=== PATIENT | female | born 1995 | race Caucasian/White ===

== ENCOUNTER → 2017-10-14 | Outpatient (REF) | payer BC | LOC: M LAB REF 11:54 | DX: R50.9 Fever, unspecified (principal); J02.9 Acute pharyngitis, unspecified ==

== ENCOUNTER 2018-04-14 23:21 | Emergency (ER) | payer BC | END 2018-04-14 23:23 | disposition left against medical advice (07) | LOC: M ED 23:21 | DX: R07.0 Pain in throat (principal); Z53.21 Procedure and treatment not carried out due to patient leaving prior to being seen by health care provider ==

== ENCOUNTER → 2018-04-19 | Outpatient (REF) | payer BC | LOC: M LAB REF 21:01 | DX: J20.9 Acute bronchitis, unspecified (principal) | CPT/HCPCS: 87430 ==

== ENCOUNTER → 2022-07-28 | Outpatient (REF) | payer BC | LOC: M LAB REF 17:41 | PROVIDERS: ATTEND Physician Assistant Medical | DX: J02.9 Acute pharyngitis, unspecified (principal) ==

== ENCOUNTER → 2023-05-19 | Outpatient (REF) | payer BC | LOC: M LAB REF 14:15 | PROVIDERS: ATTEND Physician Assistant | DX: J02.9 Acute pharyngitis, unspecified (principal) ==

== ENCOUNTER → 2023-06-10 | Outpatient (CLI) | payer BC ==
[2023-06-10 17:53] LABS: BASO % 0.5 % (0.0-1.0); EOS # 0.2 10^3/uL (0.0-0.5); EOS % 2.2 % (0.0-3.0); HEMATOCRIT 40.3 % (36.0-47.0); LYMPH # 2.9 10^3/uL (1.5-5.0); LYMPH % 39.2 % (24.0-44.0); MEAN CORPUSCULAR HEMOGLOBIN 28.7 pg (27.0-33.0); MEAN CORPUSCULAR HGB CONC 32.3 g/dl (32.0-36.5); MONO # 0.6 10^3/uL (0.0-0.8); MONO % 8.7 % (2.0-8.0); NEUTROPHILS # 3.6 10^3/uL (1.5-8.5); PLATELET COUNT, AUTOMATED 285 10^3/uL (150-450); RED BLOOD COUNT 4.53 10^6/uL (4.00-5.40); WHITE BLOOD COUNT 7.3 10^3/uL (4.0-10.0)
[2023-06-10 18:17] LABS: ALBUMIN 3.6 G/DL (3.2-5.2); ALKALINE PHOSPHATASE 70 U/L (46-116); ALT/SGPT 16 U/L (7.0-40); AST/SGOT 11 U/L (<34); BILIRUBIN,TOTAL 0.3 MG/DL (0.3-1.2); BLOOD UREA NITROGEN 12 MG/DL (9-23); CARBON DIOXIDE LEVEL 27 MMOL/L (20-31); CHLORIDE LEVEL 103 MMOL/L (98-107); CHOLESTEROL LEVEL 223 MG/DL (<200); CHOLESTEROL RISK RATIO 2.89 (<5); CREATININE FOR GFR 0.68 MG/DL (0.55-1.30); FREE T4 1.01 NG/DL (0.89-1.76); GLOMERULAR FILTRATION RATE > 60.0 (>60); GLUCOSE, FASTING 84 MG/DL (60-100); LDL CHOLESTEROL 118.8 MG/DL (<100); POTASSIUM SERUM 4.1 MMOL/L (3.5-5.1); SODIUM LEVEL 139 MMOL/L (136-145); THYROID STIMULATING HORMONE 1.457 uIU/ML (0.55-4.78); TOTAL 25(OH) VITAMIN D 46.6 NG/ML (20.0-100.0); TRIGLYCERIDES LEVEL 136 MG/DL (<150)
== END ==
LOC: M PLALAB 12:24
PROVIDERS: ATTEND Physician Assistant
DX: F41.9 Anxiety disorder, unspecified (principal); Z13.1 Encounter for screening for diabetes mellitus; Z13.29 Encounter for screening for other suspected endocrine disorder; Z13.220 Encounter for screening for lipoid disorders

== ENCOUNTER → 2023-07-19 | Outpatient (CLI) | payer BC | LOC: M PLAIMG 13:59 | PROVIDERS: ATTEND Physician Assistant | DX: R05.3 Chronic cough (principal) ==

== ENCOUNTER → 2023-11-18 | Outpatient (CLI) | payer BC | LOC: M PLAIMG 10:12 | PROVIDERS: ATTEND Physician Assistant | DX: M25.551 Pain in right hip (principal); M25.552 Pain in left hip ==

== ENCOUNTER → 2024-01-02 | Outpatient (REF) | payer BC | LOC: M SFHCPLAZ 12:27 | PROVIDERS: ATTEND Student in an Organized Health Care Education/Training Program | DX: R09.89 Other specified symptoms and signs involving the circulatory and respiratory systems (principal); J02.9 Acute pharyngitis, unspecified ==

== ENCOUNTER → 2024-04-21 | Outpatient (REF) | payer BC ==
[2024-04-21 16:52] LABS: HEMATOCRIT 41.1 % (36.0-47.0); HEMOGLOBIN 13.8 g/dl (12.0-15.5); MEAN CORPUSCULAR HEMOGLOBIN 29.2 pg (27.0-33.0); MEAN CORPUSCULAR HGB CONC 33.6 g/dl (32.0-36.5); MEAN CORPUSCULAR VOLUME 87.1 fl (80.0-96.0); PLATELET COUNT, AUTOMATED 234 10^3/uL (150-450); RED BLOOD COUNT 4.72 10^6/uL (4.00-5.40)
[2024-04-21 17:32] LABS: HEPATITIS B SURFACE ANTIGEN NEGATIVE (NEGATIVE)
[2024-04-21 17:45] LABS: HIV 1&2 SCREEN NEGATIVE (NEGATIVE)
[2024-04-21 17:53] LABS: HEPATITIS C VIRUS ABY INDEX < 0.02 INDEX (<0.8)
[2024-04-21 18:02] LABS: HCG, SERUM QUANTITATIVE 27529.4 MIU/ML (<4.2)
[2024-04-22 06:34] LABS: WHITE BLOOD COUNT 10.3 10^3/uL (4.0-10.0)
== END ==
LOC: M LAB REF 16:14
PROVIDERS: ATTEND Obstetrics & Gynecology
DX: O36.80X0 Pregnancy with inconclusive fetal viability, not applicable or unspecified (principal)

== ENCOUNTER → 2024-05-11 | Outpatient (REF) | payer BC | LOC: M SFHCPLAZ 10:05 | PROVIDERS: ATTEND Physician Assistant Medical | DX: J40 Bronchitis, not specified as acute or chronic (principal) ==

== ENCOUNTER → 2024-05-20 | Outpatient (CLI) | payer BC, OTHER | LOC: M RAD 11:24 | PROVIDERS: ATTEND Obstetrics & Gynecology | DX: O36.80X0 Pregnancy with inconclusive fetal viability, not applicable or unspecified (principal); Z32.01 Encounter for pregnancy test, result positive; Z3A.00 Weeks of gestation of pregnancy not specified ==

== ENCOUNTER → 2024-06-04 | Outpatient (REF) | payer BC, OTHER | LOC: M LAB REF 16:28 | PROVIDERS: ATTEND Obstetrics & Gynecology | DX: Z34.81 Encounter for supervision of other normal pregnancy, first trimester (principal) ==

== ENCOUNTER → 2024-07-27 | Outpatient (CLI) | payer BC, OTHER | LOC: M RAD 12:44 | PROVIDERS: ATTEND Obstetrics & Gynecology | DX: Z34.82 Encounter for supervision of other normal pregnancy, second trimester (principal); Z3A.20 20 weeks gestation of pregnancy ==

== ENCOUNTER → 2024-08-31 | Outpatient (CLI) | payer OTHER | LOC: M RAD 11:26 | PROVIDERS: ATTEND Obstetrics & Gynecology | DX: Z34.82 Encounter for supervision of other normal pregnancy, second trimester (principal); Z3A.25 25 weeks gestation of pregnancy ==

== ENCOUNTER → 2024-09-09 | Outpatient (CLI) | payer OTHER ==
[2024-09-09 12:59] LABS: BASO % 0.3 % (0.0-1.0); EOS # 0.1 10^3/uL (0.0-0.5); EOS % 1.2 % (0.0-3.0); HEMOGLOBIN 11.5 g/dl (12.0-15.5); LYMPH % 18.2 % (24.0-44.0); MEAN CORPUSCULAR HEMOGLOBIN 29.6 pg (27.0-33.0); MEAN CORPUSCULAR HGB CONC 32.9 g/dl (32.0-36.5); MONO # 0.5 10^3/uL (0.0-0.8); NEUTROPHILS % 74.8 % (36.0-66.0); PLATELET COUNT, AUTOMATED 207 10^3/uL (150-450); RED BLOOD COUNT 3.89 10^6/uL (4.00-5.40); WHITE BLOOD COUNT 10.7 10^3/uL (4.0-10.0)
== END ==
LOC: M WUC 08:53
PROVIDERS: ATTEND Advanced Practice Midwife
DX: Z34.82 Encounter for supervision of other normal pregnancy, second trimester (principal); Z3A.00 Weeks of gestation of pregnancy not specified

== ENCOUNTER → 2024-10-21 | Outpatient (REF) | payer OTHER | LOC: M LAB REF 13:02 | PROVIDERS: ATTEND Obstetrics & Gynecology | DX: R30.0 Dysuria (principal) ==

== ENCOUNTER → 2024-10-30 | Outpatient (CLI) | payer OTHER | LOC: M WUC 11:49 | PROVIDERS: ATTEND Obstetrics & Gynecology | DX: Z34.83 Encounter for supervision of other normal pregnancy, third trimester (principal) ==

== ENCOUNTER → 2024-11-17 | Outpatient (REF) | payer OTHER | LOC: M LAB REF 12:38 | PROVIDERS: ATTEND Obstetrics & Gynecology | DX: Z34.83 Encounter for supervision of other normal pregnancy, third trimester (principal) ==

== ENCOUNTER 2024-12-12 08:20 | Inpatient (IN) | payer OTHER ==
[~2024-12-12] VITALS: Ht 167.6 cm; Wt 117.8 kg
[2024-12-12] VITALS (9 sets, daily range): BP systolic 119–143; BP diastolic 64–94; TEMP 96.8
[2024-12-12] MEDS ORDERED: PRENTAB9 PO (08:48)
[2024-12-12] MEDS ORDERED: TUMS500C PO (08:53)
[2024-12-12] MEDS ORDERED: ZOLO50TA PO (08:53)
[2024-12-12] MEDS ORDERED: miSOPROStol 50MCG 1/2 TABLET PO PRN (09:45)
[2024-12-12 09:47] LABS: HEMATOCRIT 36.5 % (36.0-47.0); HEMOGLOBIN 11.8 g/dl (12.0-15.5); MEAN CORPUSCULAR HEMOGLOBIN 28.1 pg (27.0-33.0); MEAN CORPUSCULAR HGB CONC 32.3 g/dl (32.0-36.5); MEAN CORPUSCULAR VOLUME 86.9 fl (80.0-96.0); PLATELET COUNT, AUTOMATED 179 10^3/uL (150-450); WHITE BLOOD COUNT 10.8 10^3/uL (4.0-10.0)
[2024-12-12] MEDS: miSOPROStol 50MCG 1/2 TABLET PO PRN (10:06)
[2024-12-12 10:35] LABS: HIV 1&2 SCREEN NEGATIVE (NEGATIVE)
[2024-12-12 10:42] LABS: HEPATITIS C VIRUS ABY INDEX 0.02 INDEX (<0.8)
[2024-12-12] MEDS: LR 1,000 ML IV SCH (21:34)
[2024-12-12] MEDS: PROMETHAZINE 25MG/ML 1ML VIAL IV ONE (21:35)
[2024-12-12] MEDS: BUTORPHANOL 2 MG/ML 1ML VIAL IV ONE (21:36)
[2024-12-13] VITALS (26 sets, daily range): BP systolic 86–151; BP diastolic 43–89; O2SAT 98–99
[2024-12-13] MEDS ORDERED: diphenhydrAMINE 50MG/ML VIAL IV PRN (00:10)
[2024-12-13] MEDS ORDERED: NALOXONE INJ 0.4MG/1ML VIAL IV PRN (00:10)
[2024-12-13] MEDS ORDERED: EPIDURAL/PCA KEYS XX PRN (00:10)
[2024-12-13] MEDS ORDERED: ONDANSETRON 4MG 2ML VIAL IV PRN (00:10)
[2024-12-13] MEDS: FENTANYL/ROPIVACAINE/NACL BAG 100 ML EPIDURAL SCH (00:15)
[2024-12-13] MEDS: ePHEDrine SULFATE 25 MG/5 ML(5MG/ML) SYRINGE IVP PRN (01:02)
[2024-12-13] MEDS: LR 500 ML IV PRN (01:07)
[2024-12-13] MEDS: OXYTOCIN DRIP 30 UNITS in IV 1 EA IV PRN (05:50)
[2024-12-13 06:05] LABS: CORD GAS ABE A -4.5; CORD GAS HCO3 A 21.7 MMOL/L; CORD GAS O2 SAT A 33.2 %; CORD GAS PCO2 A 43.8 mmHg; CORD GAS PH A 7.313 UNITS; CORD GAS SBC A 19.2 MMOL/L; CORD GAS TCO2 A 23.1 MMOL/L
[2024-12-13 06:07] LABS: CORD GAS ABE V -2.9; CORD GAS O2 SAT V 75.1 %; CORD GAS PCO2 V 34.6 mmHg; CORD GAS PH V 7.4 UNITS; CORD GAS PO2 V 30.3 mmHg; CORD GAS SBC V 21.5 MMOL/L
[2024-12-13] MEDS ORDERED: ACETAMINOPHEN 325 MG TAB PO PRN (06:30)
[2024-12-13] MEDS ORDERED: IBUPROFEN 600MG TAB PO PRN (06:30)
[2024-12-13] MEDS ORDERED: METHYLERGONOVINE MALEATE 0.2 MG TAB PO PRN (06:30)
[2024-12-13] MEDS: DOCUSATE SODIUM 100MG CAPSULE PO PRN (10:04)
[2024-12-13] MEDS: DIBUCAINE 1% OINTMENT 30GM TOP PRN (10:04)
[2024-12-13] MEDS: PRENATAL VITAMINS CHEWABLE TABLET PO SCH (10:04)
[2024-12-13] MEDS: IBUPROFEN 800 MG TAB PO PRN (10:05)
[2024-12-13] MEDS: ACETAMINOPHEN 500 MG TAB PO PRN (14:24)
[2024-12-13] MEDS: RHOGAM 300MCG (1500IU) INJ IM SCH (16:06)
[2024-12-14 06:00] VITALS: BP 122/68; O2SAT 98
[2024-12-14] MEDS ORDERED: ACET-683 PO (11:43)
[2024-12-14] MEDS ORDERED: IBUP80TA PO (11:43)
[2024-12-15] MEDS ORDERED: MEASLES,MUMPS,RUBELLA VACCINE INJ (MMR-II) SC.IMMUN ONE (09:00)
== END 2024-12-14 14:40 | disposition home or self-care (01) | DRG 560 ==
LOC: M LDI 08:20 → M OBS 12-13 08:36
PROVIDERS: ADMIT Obstetrics & Gynecology; ATTEND Obstetrics & Gynecology
PROC: 3E0P7GC Introduction of Other Therapeutic Substance into Female Reproductive, Via Natural or Artificial Opening (ICD-10-PCS; 2024-12-12)
PROC: 10E0XZZ Delivery of Products of Conception, External Approach (ICD-10-PCS; principal; 2024-12-13)
PROC: 0HQ9XZZ Repair Perineum Skin, External Approach (ICD-10-PCS; 2024-12-13)
DX: O48.0 Post-term pregnancy (principal); O32.6XX0 Maternal care for compound presentation, not applicable or unspecified; Z37.0 Single live birth; Z3A.40 40 weeks gestation of pregnancy; O70.0 First degree perineal laceration during delivery